=== PATIENT | female | born 1990 | race Hispanic/Latino ===

== ENCOUNTER 2022-10-07 06:00 | Inpatient (IN) | payer MEDICAID, OTHER, SELFPAY ==
[2022-10-07] MEDS ORDERED: Ondansetron PF 4 MG/2 ML Vial IVP PRN ×2 (07:52→13:52)
[2022-10-07] MEDS ORDERED: hydrALAZINE 20 MG/ML VIAL SLOW IVP PRN (07:52)
[2022-10-07] MEDS ORDERED: Promethazine HCl 25 MG/ML VIAL IM PRN ×2 (07:52→13:52)
[2022-10-07] MEDS ORDERED: Lidocaine 1% (PF) 30 ML VIAL SC PRN (07:52)
[2022-10-07] MEDS ORDERED: Acetaminophen 500 MG TAB PO PRN (07:52)
[2022-10-07] MEDS ORDERED: NS w/ Oxytocin 30 units 500 ML IV SCH ×2 (08:00)
[2022-10-07] MEDS ORDERED: Bupivacaine 0.25% HCL 30 ML VIAL ONE (08:00)
[2022-10-07] MEDS ORDERED: ePHEDrine Sulfate 50 MG/10 ML VIAL ONE (08:00)
[2022-10-07 09:19] LABS: Hemoglobin 10.1 g/dL (12.0-15.5); Mean Corpuscular HGB CONC 31.8 g/dL (32.0-36.0); Mean Corpuscular Hemoglobin 25.3 pg (27.0-33.0); Mean Corpuscular Volume 79.5 fl (81.6-98.3); Platelet Count 285 10x3/uL (150-450); White Blood Cell (WBC) Count 8.8 10x3/uL (3.5-10.5)
[2022-10-07 09:49] LABS: HBSAg Index 0.16 S/CO (0-0.99); Hep B Surf Ag - L&D Non-Reactive S/CO (NonReactive)
[2022-10-07 09:50] LABS: Syphilis Antibody Nonreactive (Nonreactive); Syphilis Antibody Index 0.03 S/CO (<1.00 Non-Reactive)
[2022-10-07] MEDS ORDERED: Carboprost 250 MCG/ML AMP IM PRN ×2 (10:02→10:07)
[2022-10-07] MEDS ORDERED: Methylergonovine 0.2 MG/ML VIAL IM PRN ×2 (10:02→10:07)
[2022-10-07] MEDS ORDERED: Tranexamic Acid 1,000 MG/10 ML VIAL IVP PRN ×2 (10:03→10:07)
[2022-10-07] MEDS ORDERED: Misoprostol 200 MCG TAB PR PRN ×2 (10:03→10:07)
[2022-10-07] MEDS ORDERED: Fentanyl 2 mcg/Bup 0.1% Cadd 100 ML ONE (13:10)
[2022-10-07] MEDS ORDERED: Moisturizing Cream (Eucerin) 113 GM JAR TOP PRN (13:52)
[2022-10-07] MEDS ORDERED: diphenhydrAMINE 50 MG/ML VIAL IVP PRN (13:52)
[2022-10-07] MEDS ORDERED: Acetaminophen 325 MG TAB PO PRN (13:52)
[2022-10-07] MEDS ORDERED: Naloxone HCl 0.4 mg/ml Vial IVP PRN ×2 (13:52)
[2022-10-07] MEDS ORDERED: Lactated Ringer's 500 ML IV PRN (13:52)
[2022-10-07] MEDS ORDERED: ePHEDrine Sulfate 50 MG/10 ML VIAL SLOW IVP PRN (13:52)
[2022-10-07] MEDS ORDERED: Communication Order-Pharmacy FS SCH (14:00)
[2022-10-07] MEDS ORDERED: Fentanyl 2 mcg/Bupivacaine 0.1% Cassette 100 ML EPIDURAL SCH (14:00)
[2022-10-07] MEDS ORDERED: Misoprostol 200 MCG TAB ONE (17:06)
[2022-10-07] MEDS ORDERED: Magnesium Sulfate 20 gm/500 ml 20 GM/500 ML BAG ONE (19:46)
[2022-10-07] MEDS ORDERED: Lorazepam 2 MG/ML VIAL SLOW IVP PRN (19:46)
[2022-10-07] MEDS ORDERED: Calcium Gluc 4.6 MEQ/10 ML (100 MG/ML) SLOW IVP PRN (19:46)
[2022-10-07] MEDS ORDERED: Magnesium Sulfate 20 gm/500 ml 20 GM/500 ML BAG IVPB SCH (20:00)
[2022-10-07 20:10] LABS: Hemoglobin 11.8 g/dL (12.0-15.5); Mean Corpuscular HGB CONC 31.9 g/dL (32.0-36.0); Mean Corpuscular Hemoglobin 25.5 pg (27.0-33.0); Mean Corpuscular Volume 79.9 fl (81.6-98.3); Mean Platelet Volume 10.9 fl (7.4-10.4); Platelet Count 279 10x3/uL (150-450); RBC Distribution Width 15.9 % (11.5-14.5); Red Blood Cell (RBC) Count 4.63 10x6/uL (3.90-5.03); White Blood Cell (WBC) Count 14.4 10x3/uL (3.5-10.5)
[2022-10-07 20:21] LABS: ALT (SGPT) 7 U/L (8-55); AST (SGOT) 19 U/L (5-34); Alkaline Phosphatase 222 U/L (40-110); Anion Gap 15 mmol/L (10-20); BUN (Urea Nitrogen) 6 mg/dL (7.0-18.7); Bilirubin, Total 0.3 mg/dL (0.2-1.2); Calc. Creatinine Clearance 160 mL/min (70-130); Calcium 9.1 mg/dL (7.8-10.44); Carbon Dioxide 20 mmol/L (22-29); Chloride 105 mmol/L (98-107); Estimated GFR 124; Globulin 3.8 g/dL (2.4-3.5); Glucose 87 mg/dL (70-105); Potassium 3.6 mmol/L (3.5-5.1); Protein, Total 6.8 g/dL (6.0-8.3); Sodium 136 mmol/L (136-145)
[2022-10-07 23:50] LABS: Creatinine, Urine 25.48 mg/dL (47-110); Protein, Urine Random Quant Less than 10 mg/dL (1-14)
[2022-10-08] MEDS: Lactated Ringer's 1,000 ML IV SCH (01:09)
[2022-10-08] MEDS ORDERED: diphenhydrAMINE 25 MG CAP PO PRN (07:29)
[2022-10-08] MEDS ORDERED: Benzocaine-Menthol 82.5 ML CAN TOP PRN (07:29)
[2022-10-08] MEDS ORDERED: Milk Of Magnesia 30 ML UDCUP PO PRN (07:29)
[2022-10-08] MEDS ORDERED: Boostrix 0.5 ML (Tdap) VIAL (>/=7 yrs of age) IM ONE (07:29)
[2022-10-08] MEDS ORDERED: Bisacodyl 10 MG SUPP PR PRN (07:29)
[2022-10-08] MEDS ORDERED: hydrALAZINE 20 MG/ML VIAL SLOW IVP PRN (07:29)
[2022-10-08] MEDS ORDERED: Preparation H Ointment 28 GM TUBE PR PRN (07:29)
[2022-10-08] MEDS ORDERED: Acetaminophen 500 MG TAB PO PRN (07:29)
[2022-10-08] MEDS ORDERED: Methylergonovine 0.2 MG/ML VIAL IM PRN (07:29)
[2022-10-08] MEDS ORDERED: Misoprostol 200 MCG TAB VAG PRN (07:29)
[2022-10-08] MEDS ORDERED: NS w/ Oxytocin 30 units 500 ML IV SCH (07:29)
[2022-10-08] MEDS ORDERED: Lanolin Ointment 7 GM TUBE TOP PRN (07:29)
[2022-10-08] MEDS: Prenatal Vitamin 1 TAB PO SCH (09:10)
[2022-10-08] MEDS: Docusate 100 MG CAP PO SCH ×2 (09:10→21:16)
[2022-10-08] MEDS: Ibuprofen 800 MG TAB PO SCH ×2 (10:05→18:22)
[2022-10-09] MEDS: Ibuprofen 800 MG TAB PO SCH ×2 (00:35→08:24)
[2022-10-09] MEDS: Ferrous Sulfate 325 MG TAB PO SCH (07:44)
[2022-10-09] MEDS: Lactated Ringer's 1,000 ML IV SCH ×2 (07:45→07:46)
[2022-10-09 08:12] VITALS: BP 109/60; TEMP 98
[2022-10-09] MEDS: Docusate 100 MG CAP PO SCH (08:24)
[2022-10-09] MEDS: Prenatal Vitamin 1 TAB PO SCH (08:24)
== END 2022-10-09 12:05 | disposition home or self-care (01) | DRG 807 ==
LOC: CSHLD 07:40 → CSHPP 10-08 12:20
PROVIDERS: ADMIT Obstetrics & Gynecology; ATTEND Obstetrics & Gynecology
PROC: 10E0XZZ Delivery of Products of Conception, External Approach (ICD-10-PCS; principal; 2022-10-07)
PROC: 10907ZC Drainage of Amniotic Fluid, Therapeutic from Products of Conception, Via Natural or Artificial Opening (ICD-10-PCS; 2022-10-07)
DX: O99.02 Anemia complicating childbirth (principal); Z37.0 Single live birth; Z3A.39 39 weeks gestation of pregnancy; Z79.899 Other long term (current) drug therapy; O99.814 Abnormal glucose complicating childbirth; O14.15 Severe pre-eclampsia, complicating the puerperium; D50.9 Iron deficiency anemia, unspecified
CPT/HCPCS: 36415; 51702; 80053; 82570; 84156; 85027; 86780; 86850; 86900; 86901; 87340; J0360; J2210; J2590; J3475; J7120; S0020